=== PATIENT | female | born 1965 | race Caucasian/White ===

== ENCOUNTER 2017-10-11 12:13 | Day surgery (SDC) | payer BC ==
[~2017-10-11 12:13] MED LIST: Betamethasone Acetate/Betamethasone Sod Phosphate 30 MG/5 ML MDV ONE; Iopamidol 408 MG/ML 50 ML SDV ONE; Lidocaine 1% 0 ML ONE; Lidocaine 2% 5 ML SDV ONE; Ropivacaine 0.2% 2 MG/ML 20 ML SDV ONE
[2017-10-11] MEDS ORDERED: Sodium Bicarbonate 8.4% 50 MEQ/50 ML SDV ONE (13:37)
--- NOTE | 2017-10-11 21:22 | OR ---
SURGEON: Henna Fish D.O. DATE OF PROCEDURE: 10/11/2017 OPERATING ROOM STAFF: 1. Lisa Moreland RN. 2. Ale Chua RN. 3. Ale eldridge RN. 4. Parmjit Peterson, RT. WOUND CLASS: I. PROEPERATIVE DIAGNOSES: 1. Lumbar herniated disk, L4-5 and L5-S1. 2. Lumbar spinal stenosis. 3. Lumbar radiculopathy, bilateral lower extremity. POSTOPERATIVE DIAGNOSES: 1. Lumbar herniated disk, L4-5 and L5-S1. 2. Lumbar spinal stenosis. 3. Lumbar radiculopathy, bilateral lower extremity. PROCEDURES PERFORMED: 1. Lumbar epidural steroid injection at L4-5, interlaminar. 2. Fluoroscopic guidance for needle placement. 3. Local with oral valium for sedation. PREOPERATIVE PAIN: 8/10. POSTOPERATIVE PAIN: 6/10. SCREENING QUESTIONS: The patient answered "no" to all of the following questions: 1. Are you allergic to latex? 2. Do you have a bleeding disorder? 3. Do you have any current local or systemic infections? 4. Are you taking any anti-inflammatories or blood thinners? 5. Do you have any joint replacements, heart valve replacements, or a pacemaker? DESCRIPTION OF PROCEDURE: The patient had the procedure thoroughly explained including all possible risks, benefits and alternatives. Consent was signed in my clinic indicating understanding and willingness to proceed. The patient presented to [facility] and was escorted to the dressing room to disrobe and change into a hospital gown. Preoperative vital signs were taken and stable. The patient reported that Valium was taken prior to the procedure. The patient was brought back to the procedure room and placed in the prone position on the procedure room table. A pillow was placed under the hips in order to flatten the lumbar lordosis. The back was prepped with ChloraPrep and sterilely draped. All personnel in the operating room were dressed in appropriate attire including surgical scrubs, head and shoe covers. This was to ensure sterility while in the treatment room. During the time fluoroscopy was in use, all personnel in the operating room wore lead brooke with thyroid collars. Sterile technique was used throughout the procedure. The patient was awake and conversant throughout the procedure. There was no evidence of infection at the site of needle insertion. Skeletal landmarks were identified under fluoroscopy for the lumbar epidural. Skin was anesthetized with 2% lidocaine with a sterile 27-gauge 1.5 inch needle. Then a 20-gauge Tuohy epidural needle was placed in the epidural space with loss of resistance technique under fluoroscopic guidance. No heme, cerebrospinal fluid, or paresthesias were noted. Isovue-200 contrast dye was injected in 0.2 cubic centimeter increments and seen to outline the epidural space in both AP and lateral views. There was no intravascular flow pattern observed under live fluoroscopy. Then 12 milligrams of Celestone was slowly injected after negative aspiration. The patient tolerated the procedure well. Vital signs were stable during and after the procedure. The staff escorted the patient to the recovery area and the patient was released in stable condition after a brief stay in the recovery room monitored by the nurse. The patient was given both oral and written discharge and follow up instructions with recommendation to follow up given for 2-3 weeks. The patient voiced understanding including understanding of those signs and symptoms that would require emergency care. The patient knows how to contact the office if there are any additional problems or questions in the meantime. FOLLOWUP: In the pain clinic in 3 weeks. CHELO / RAIN /[id number]
== END 2017-10-11 15:00 | disposition home or self-care (01) ==
LOC: MW.SDS 12:13
PROVIDERS: ATTEND Anesthesiology
DX: M51.16 Intervertebral disc disorders with radiculopathy, lumbar region (principal); M48.061 Spinal stenosis, lumbar region without neurogenic claudication; F41.9 Anxiety disorder, unspecified; E66.9 Obesity, unspecified; Z79.899 Other long term (current) drug therapy
CPT/HCPCS: 62323; J0702; J2795; Q9966

== ENCOUNTER 2017-11-10 11:19 | Day surgery (SDC) | payer BC ==
[2017-11-10] MEDS ORDERED: Betamethasone Acetate/Betamethasone Sod Phosphate 30 MG/5 ML MDV ONE (15:13)
[2017-11-10] MEDS ORDERED: Iopamidol 408 MG/ML 50 ML SDV ONE (15:13)
[2017-11-10] MEDS ORDERED: Ropivacaine 0.5% 5 MG/ML 30 ML SDV ONE (15:13)
--- NOTE | 2017-11-10 17:40 | OR ---
SURGEON: Henna Fish D.O. DATE OF PROCEDURE: 11/10/2017 OR STAFF PRESENT: 1. Hiwot Peterson RT. 2. Bandar Sandoval RN. PREOPERATIVE DIAGNOSES: 1. Lumbar degenerative disk disease. 2. Lumbar radiculopathy. POSTOPERATIVE DIAGNOSES: 1. Lumbar degenerative disk disease. 2. Lumbar radiculopathy. PROCEDURE PERFORMED: Right L5-S1 transforaminal epidural steroid injection under fluoroscopy. SCREENING QUESTIONS: The patient answered "no" to all of the following questions: 1. Are you allergic to iodine, Betadine or latex? 2. Do you have a bleeding disorder? 3. Do you have any joint replacements, heart valve replacements, or a pacemaker? 4. Are you allergic to anti-inflammatories or blood thinners? 5. Do you have any current local or systemic infections? MEDICAL NECESSITY: This is a patient with a history of chronic low back pain and lower extremity radicular pain in the above dermatomal pattern that comes in for the above diagnostic and therapeutic procedure. Pertinent positives and negatives for this suspected disease process along with the diagnostic findings and testing are in the patient's history and physical exam. The most salient feature includes radicular pain in the above dermatomal pattern. The patient had failed attempts at conservative therapy including physical therapy, nonsteroidal anti- inflammatory drugs, and other medications. No contraindications to perform this procedure including medical, no bleeding disorders or infections, no psychological, no antisocial personality disorder or active addiction disorder. There are no work-related issues, and, in general, the patient does not have any history of multiple prior interventions, surgeries or nerve blocks which have failed to return the patient to function. The patient's other symptoms to be treated include numbness, paresthesia, dysesthesia or hypoesthesia referred into the left lower extremity or any weakness in the involved myotome. This procedure is being performed in accordance with national guidelines as written by the [employer] (BOBBY). DESCRIPTION OF PROCEDURE: The patient had the procedure thoroughly explained including risks, benefits and alternatives. Consent was signed in my clinic indicating understanding and willingness to proceed. The patient presented to [facility] [place] where the patient was escorted to the dressing room to disrobe and change into a hospital gown. Preoperative vital signs were taken and stable. The patient reported that Valium was taken prior to the procedure. The patient was brought to the procedure room and placed in the prone position on the table. A pillow was placed under the abdomen in order to flatten the lumbar lordosis. The back was prepped with ChloraPrep and sterilely draped. All personnel in the operating room were dressed in appropriate attire including surgical scrubs, head and shoe covers. This was to ensure sterility while in the treatment room. During the time fluoroscopy was in use, all personnel in the operating room wore lead brooke with thyroid collars. Sterile technique was used during the procedure. The fluoroscope was placed for the right L5-S1 transforaminal epidural steroid injection. There was no sign of infection at the skin site for needle insertion. The skin was anesthetized with 2% lidocaine with a 27 gauge 1-1/2 inch needle. Then, a 22 gauge 3-1/2 inch spinal needle, advanced to the foramen. Under direct fluoroscopic guidance needle position was verified in three views; AP, oblique and lateral, with 0.2 cubic centimeters increments of Isovue-200 dye. No intravascular flow pattern was observed under live fluoroscopy. Then, 12 milligrams of Celestone was slowly injected after negative aspiration of heme, cerebrospinal fluid and no paresthesias were noted. The needle was cleared prior to removal from the skin. No adverse reactions were noted. The patient was brought to the recovery room awake and in good condition by my staff. The patient was monitored and discharge instructions were given after a brief stay in the recovery area. Both oral and written discharge and follow up instructions were given. The patient will follow up in the clinic in 3-4 weeks post procedure to evaluate the efficacy. The patient verbalized understanding including understanding of those signs and symptoms that would require emergency care and knows how to contact the office if there are any problems or questions in the meantime. PREOPERATIVE PAIN: 07/31. POSTOPERATIVE PAIN: 03/02. FOLLOWUP: Follow up in the Pain Clinic in 3 weeks. HOGNANDINI / RAIN /[id number]
== END 2017-11-10 13:37 ==
LOC: MW.SDS 11:19
PROVIDERS: ATTEND Anesthesiology
DX: M51.16 Intervertebral disc disorders with radiculopathy, lumbar region (principal); G89.4 Chronic pain syndrome; M51.26 Other intervertebral disc displacement, lumbar region; E66.9 Obesity, unspecified; Z68.24 Body mass index [BMI] 24.0-24.9, adult; M79.1 Myalgia; F41.9 Anxiety disorder, unspecified
CPT/HCPCS: 64483; J0702; J2795; Q9966

== ENCOUNTER 2018-02-27 06:23 | Emergency (ER) | payer BC ==
[2018-02-27] MEDS ORDERED: Ketorolac 60 MG/2 ML SDV IM ONE (07:07)
--- NOTE | 2018-02-27 07:08 | EDM.PDOC ---
ED HPI GENERAL MEDICAL PROBLEM - General Chief Complaint: Back Pain or Injury Stated Complaint: BACK PAIN Time Seen by Provider: 02/27/18 06:49 Source of Information: Reports: Patient History Limitations: Reports: No Limitations - History of Present Illness INITIAL COMMENTS - FREE TEXT/NARRATIVE: History of present illness: []Patient has a history of chronic low back pain that patient states started worsening yesterday after she started her menses. She states she feels like everything shifted and is now radiating to right hip. Patient is followed by Dr. Fish but has not contacted her. Patient denies any numbness, tingling or incontinence. It was hard to drive due to the pain in her right hip with movement of her right foot. Review of systems: As per history of present illness and below otherwise all systems reviewed and negative. Past medical history: As per history of present illness and as reviewed below otherwise noncontributory. Surgical history: As per history of present illness and as reviewed below otherwise noncontributory. Social history: No reported history of drug or alcohol abuse. Family history: As per history of present illness and as reviewed below otherwise noncontributory. Physical exam: General: Well developed, well nourished in moderate painful distress, tearful HEENT: Atraumatic, normocephalic, pupils reactive, negative for conjunctival pallor or scleral icterus, mucous membranes moist, throat clear, neck supple, nontender, trachea midline. Lungs: Clear to auscultation, breath sounds equal bilaterally, chest nontender. Heart: S1S2, regular, negative for clicks, rubs, or JVD. Abdomen: NABS, Soft, nondistended, nontender. Negative for masses or hepatosplenomegaly. Negative for costovertebral tenderness. Pelvis: Stable nontender. Genitourinary: Deferred. Rectal: Deferred. Extremities: Atraumatic, negative for cords or calf pain. Neurovascular unremarkable. Neuro: Awake, alert, oriented. Cranial nerves II through XII unremarkable. Cerebellum unremarkable. Motor and sensory unremarkable throughout. Exam nonfocal. Ambulating in the room Skin:warm and dry Diagnostics: None Therapeutics: Toradol, Norflex ED Course: Unremarkable Impression: Acute exacerbation of chronic low back pain with right-sided sciatica Prescriptions: Norflex Plan: Follow-up with Dr. Fish and/or primary care, ice to back, take meds as directed. Definitive disposition and diagnosis as appropriate pending reevaluation and review of above. right hip Pain Score (Numeric/FACES): 10 - Related Data Allergies Allergy/AdvReac Type Severity Reaction Status Date / Time No Known Allergies Allergy Verified 02/27/18 06:43 Home Meds: Home Meds Orphenadrine [Norflex] 100 mg PO BID PRN #16 tab 02/27/18 [Rx] Past Medical History - Past Surgical History GI Surgical History: Reports: Other (See Below) Other GI Surgeries/Procedures: tummy tuck Female Surgical History: Reports: Section Musculoskeletal Surgical History: Reports: Other (See Below) Other Musculoskeletal Surgeries/Procedures:: left knee sx Social & Family History - Family History Family Medical History: Noncontributory - Tobacco Use Smoking Status *Q: Never Smoker - Recreational Drug Use Recreational Drug Use: No ED ROS GENERAL - Review of Systems Review Of Systems: ROS reveals no pertinent complaints other than HPI. ED EXAM,LOWER BACK PAIN/INJURY - Physical Exam Exam: See Below (See history of present illness) Course - Vital Signs Last Recorded V/S: Last Vital Signs Temp 97.7 F 02/27/18 06:35 Pulse 86 02/27/18 06:35 Resp 18 02/27/18 06:35 BP 151/83 H 02/27/18 06:35 Pulse Ox 94 L 02/27/18 06:35 - Orders/Labs/Meds Orders: Active Orders 24 hr Category Date Time Status Orphenadrine [Norflex] Med 02/27/18 07:15 Active 60 mg IM Q12H Medication Orders Orphenadrine Citrate (Norflex) 60 mg IM Q12H JOSE ROBERTO Last Admin: 02/27/18 07:25 Dose: 60 mg Meds: Medications Generic Name Dose Route Start Last Admin Trade Name Freq PRN Reason Stop Dose Admin Orphenadrine Citrate 60 mg 02/27/18 07:15 02/27/18 07:25 Norflex IM 60 mg Q12H JOSE ROBERTO Administration Discontinued Medications Generic Name Dose Route Start Last Admin Trade Name Freq PRN Reason Stop Dose Admin Ketorolac Tromethamine 60 mg 02/27/18 07:07 02/27/18 07:24 Toradol IM 02/27/18 07:08 60 mg ONETIME ONE Administration Departure - Departure Time of Disposition: 07:57 Disposition: Home, Self-Care 01 Condition: Good Clinical Impression: Acute exacerbation of chronic low back pain, Right sided sciatica - Discharge Information *PRESCRIPTION DRUG MONITORING PROGRAM REVIEWED*: Yes *COPY OF PRESCRIPTION DRUG MONITORING REPORT IN PATIENT ANNE MARIE: No Prescriptions: Orphenadrine [Norflex] 100 mg PO BID PRN #16 tab PRN Reason: Pain Referrals: Leatha Stover [facility] [Primary Care Provider] - Forms: ED Department Discharge Additional Instructions: The following information is given to patients seen in the emergency department who are being discharged to home. This information is to outline your options for follow-up care. We provide all patients seen in our emergency department with a follow-up referral. The need for follow-up, as well as the timing and circumstances, are variable depending upon the specifics of your emergency department visit. If you don't have a primary care physician on staff, we will provide you with a referral. We always advise you to contact your personal physician following an emergency department visit to inform them of the circumstance of the visit and for follow-up with them and/or the need for any referrals to a consulting specialist. The emergency department will also refer you to a specialist when appropriate. This referral assures that you have the opportunity for follow-up care with a specialist. All of these measure are taken in an effort to provide you with optimal care, which includes your follow-up. Under all circumstances we always encourage you to contact your private physician who remains a resource for coordinating your care. When calling for follow-up care, please make the office aware that this follow-up is from your recent emergency room visit. If for any reason you are refused follow-up, please contact the [facility] Emergency Department at and asked to speak to the emergency department charge nurse. [facility] [address] [place] [address] - My Orders Last 24 Hours: My Active Orders 02/27/18 07:15 Orphenadrine [Norflex] 60 mg IM Q12H - Assessment/Plan Last 24 Hours: My Active Orders 02/27/18 07:15 Orphenadrine [Norflex] 60 mg IM Q12H
[2018-02-27] MEDS ORDERED: HYDROmorphone 2 MG/ML SDV IM ONE (08:05)
[2018-02-27] MEDS ORDERED: HYDROmorphone 1 MG/ML Syringe ONE (08:08)
== END 2018-02-27 08:39 | disposition home or self-care (01) ==
LOC: MW.ED 06:23
DX: M54.41 Lumbago with sciatica, right side (principal); G89.29 Other chronic pain
CPT/HCPCS: 96372; 99284; J1170; J1885; J2360

== ENCOUNTER 2018-02-28 06:50 | Emergency (ER) | payer BC ==
[2018-02-28] MEDS ORDERED: Ketorolac 60 MG/2 ML SDV IM ONE (07:06)
--- NOTE | 2018-02-28 07:20 | EDM.PDOC ---
ED HPI GENERAL MEDICAL PROBLEM - General Chief Complaint: Back Pain or Injury Stated Complaint: BACK PAIN Time Seen by Provider: 02/28/18 06:57 Source of Information: Reports: Patient History Limitations: Reports: No Limitations - History of Present Illness INITIAL COMMENTS - FREE TEXT/NARRATIVE: History of present illness: []Patient has exacerbation of chronic low back pain and was seen here yesterday for the same reason. She returns with ongoing pain. Patient has an appointment with Dr. Novoa, who she is established with, at 9:30 this morning. Review of systems: As per history of present illness and below otherwise all systems reviewed and negative. Past medical history: As per history of present illness and as reviewed below otherwise noncontributory. Surgical history: As per history of present illness and as reviewed below otherwise noncontributory. Social history: No reported history of drug or alcohol abuse. Family history: As per history of present illness and as reviewed below otherwise noncontributory. Physical exam: General: Well developed, well nourished in NAD HEENT: Atraumatic, normocephalic, pupils reactive, negative for conjunctival pallor or scleral icterus, mucous membranes moist, throat clear, neck supple, nontender, trachea midline. Lungs: Clear to auscultation, breath sounds equal bilaterally, chest nontender. Heart: S1S2, regular, negative for clicks, rubs, or JVD. Abdomen: NABS, Soft, nondistended, nontender. Negative for masses or hepatosplenomegaly. Negative for costovertebral tenderness. Pelvis: Stable nontender. Genitourinary: Deferred. Rectal: Deferred. Extremities: Atraumatic, negative for cords or calf pain. Neurovascular unremarkable. Neuro: Awake, alert, oriented. Cranial nerves II through XII unremarkable. Cerebellum unremarkable. Motor and sensory unremarkable throughout. Exam nonfocal. Skin:warm and dry Diagnostics: None Therapeutics: Toradol ED Course: Unremarkable Impression: Right-sided sciatica, acute exacerbation of chronic back pain Prescriptions: Medrol Dosepak Plan: Follow-up with Dr. Novoa today as scheduled. Definitive disposition and diagnosis as appropriate pending reevaluation and review of above. right lower back Pain Score (Numeric/FACES): 10 - Related Data Allergies Allergy/AdvReac Type Severity Reaction Status Date / Time No Known Allergies Allergy Verified 02/28/18 07:01 Home Meds: Home Meds Orphenadrine [Norflex] 100 mg PO BID PRN #16 tab 02/27/18 [Rx] Diclofenac Sodium [Diclofenac Sodium ER] 1 tab PO BID 02/28/18 [History] Methocarbamol 750 mg PO ASDIRECTED PRN 02/28/18 [History] methylPREDNISolone [Medrol] 4 mg PO ASDIRECTED #1 dosepk 02/28/18 [Rx] oxyCODONE HCl/Acetaminophen [Oxycodone-Acetaminophen 5-325] 1 tab PO Q6HR PRN [History] Past Medical History HEENT History: Reports: None Cardiovascular History: Reports: None Respiratory History: Reports: None Gastrointestinal History: Reports: None Genitourinary History: Reports: None SU[employer]VISING [employer]IL[employer] History: Reports: None Musculoskeletal History: Reports: Back Pain, Chronic Neurological History: Reports: None Psychiatric History: Reports: None Endocrine/Metabolic History: Reports: None Hematologic History: Reports: None Immunologic History: Reports: None Oncologic (Cancer) History: Reports: None Dermatologic History: Reports: None - Infectious Disease History Infectious Disease History: Reports: Chicken Pox, Measles - Past Surgical History Head Surgeries/Procedures: Reports: None HEENT Surgical History: Reports: None Cardiovascular Surgical History: Reports: None Respiratory Surgical History: Reports: None GI Surgical History: Reports: Other (See Below) Other GI Surgeries/Procedures: tummy tuck Female Surgical History: Reports: Section Endocrine Surgical History: Reports: None Neurological Surgical History: Reports: None Musculoskeletal Surgical History: Reports: Other (See Below) Other Musculoskeletal Surgeries/Procedures:: left knee sx Oncologic Surgical History: Reports: None Dermatological Surgical History: Reports: None Social & Family History - Family History Family Medical History: Noncontributory - Tobacco Use Smoking Status *Q: Never Smoker Second Hand Smoke Exposure: No - Caffeine Use Caffeine Use: Reports: Coffee - Recreational Drug Use Recreational Drug Use: Yes Recreational Drug Type: Reports: Marijuana/Hashish Recreational Drug Use Frequency: Rarely ED ROS GENERAL - Review of Systems Review Of Systems: ROS reveals no pertinent complaints other than HPI. ED EXAM,LOWER BACK PAIN/INJURY - Physical Exam Exam: See Below (See history of present illness) Course - Vital Signs Last Recorded V/S: Last Vital Signs Temp 96.6 F 02/28/18 07:04 Pulse 71 02/28/18 07:04 Resp 18 02/28/18 07:04 BP 146/100 H 02/28/18 07:04 Pulse Ox 99 02/28/18 07:04 - Orders/Labs/Meds Meds: Medications Discontinued Medications Generic Name Dose Route Start Last Admin Trade Name Kapil PRN Reason Stop Dose Admin Ketorolac Tromethamine 60 mg 02/28/18 07:06 02/28/18 07:14 Toradol IM 02/28/18 07:07 60 mg ONETIME ONE Administration Departure - Departure Time of Disposition: 08:02 Disposition: Home, Self-Care 01 Condition: Good Clinical Impression: Acute exacerbation of chronic low back pain - Discharge Information *PRESCRIPTION DRUG MONITORING PROGRAM REVIEWED*: No *COPY OF PRESCRIPTION DRUG MONITORING REPORT IN PATIENT ANNE MARIE: No Prescriptions: methylPREDNISolone [Medrol] 4 mg PO ASDIRECTED #1 dosepk Referrals: Ranjan Ellis MD [Primary Care Provider] - Forms: ED Department Discharge Additional Instructions: The following information is given to patients seen in the emergency department who are being discharged to home. This information is to outline your options for follow-up care. We provide all patients seen in our emergency department with a follow-up referral. The need for follow-up, as well as the timing and circumstances, are variable depending upon the specifics of your emergency department visit. If you don't have a primary care physician on staff, we will provide you with a referral. We always advise you to contact your personal physician following an emergency department visit to inform them of the circumstance of the visit and for follow-up with them and/or the need for any referrals to a consulting specialist. The emergency department will also refer you to a specialist when appropriate. This referral assures that you have the opportunity for follow-up care with a specialist. All of these measure are taken in an effort to provide you with optimal care, which includes your follow-up. Under all circumstances we always encourage you to contact your private physician who remains a resource for coordinating your care. When calling for follow-up care, please make the office aware that this follow-up is from your recent emergency room visit. If for any reason you are refused follow-up, please contact the [facility] Emergency Department at and asked to speak to the emergency department charge nurse. Follow-up with Dr. Fish this morning as scheduled. [facility] Primary Care [address] [place] [id number]
== END 2018-02-28 08:04 | disposition home or self-care (01) ==
LOC: MW.ED 06:50
DX: M54.41 Lumbago with sciatica, right side (principal); G89.29 Other chronic pain
CPT/HCPCS: 96372; 99283; J1885